=== PATIENT | male | born 1960 | race Caucasian/White ===

== ENCOUNTER 2023-02-10 12:06 | Day surgery (SDC) | payer OTHER ==
[~2023-02-10 12:06] MED LIST: Midazolam 1 MG/ML 2 ML SDV ONE; Propofol 200 MG/20 ML SDV ONE; Sodium Chloride 0.9% 10 ML Syringe FLUSH PRN
[2023-02-10] MEDS: Lactated Ringers 1,000 ML IV SCH (12:40)
[2023-02-10] MEDS ORDERED: Midazolam 1 MG/ML 2 ML SDV IVPUSH ONE (14:10)
[2023-02-10] MEDS ORDERED: Propofol 200 MG/20 ML SDV IVPUSH ONE (14:10)
[2023-02-10 15:02] VITALS: BP 111/62; PULSE 65
== END 2023-02-10 15:55 | disposition home or self-care (01) ==
LOC: LL.SDS 12:06
PROVIDERS: ATTEND Surgery
DX: Z12.11 Encounter for screening for malignant neoplasm of colon (principal); K57.30 Diverticulosis of large intestine without perforation or abscess without bleeding; M05.9 Rheumatoid arthritis with rheumatoid factor, unspecified; Z86.010 Personal history of colon polyps; H93.13 Tinnitus, bilateral; Z91.013 Allergy to seafood
CPT/HCPCS: 00812; J2250; J2704; J7120